=== PATIENT | female | born 1990 | race Caucasian/White ===

== ENCOUNTER 2024-04-06 06:14 | Emergency (ER) | payer BC, MEDICAID, SELFPAY ==
[2024-04-06] VITALS (11 sets, daily range): BP systolic 109–131; BP diastolic 75–96; PULSE 48–71; RESP 9–17; TEMP 36.6; O2SAT 94–100
--- NOTE | ~2024-04-06 | CT_ITS ---
EXAMINATION: CT abdomen pelvis w con DATE: 04/06/2024 08:22 INDICATION: Abdominal pain TECHNIQUE: Computed tomography (CT) of the abdomen and pelvis was performed with 100 mL Omnipaque-350 intravenous contrast. Automated exposure control and iterative reconstruction technique were employe d. The dose-length product was 1029.96 mGy-cm. COMPARISON: None FINDINGS: Lung bases are clear. Heart size is normal. No pericardial or pleural effusion. Focal hepatic steatos is at the ligamentum teres. There is diffuse edematous wall thickening of the gallbladder without vinnie reciable pericholecystic inflammatory stranding but nonetheless concerning for acute cholecystitis. N o intra or extra hepatic biliary ductal dilation. Spleen, pancreas, bilateral adrenal glands and kidn eys are normal. Bowels including the appendix are normal. Bladder is normal. The uterus is not identi fied and has likely been surgically resected. Bilateral adnexa are unremarkable. No free intraperiton eal gas or fluid. No pathologically enlarged abdominal or pelvic lymphadenopathy. No free intraperito luis gas or fluid. No pathologically enlarged abdominal or pelvic lymphadenopathy. Minimal scattered degenerative skeletal changes. IMPRESSION: 1. Edematous gallbladder wall thickening of the mildly dilated gallbladder suspicious for acute kim cystitis. Correlate for Encarnacion sign and if clinically indicated could consider further evaluation wit h gallbladder ultrasound and/or HIDA scan. Reviewed, dictated and finalized at location A. IMPRESSION: 1. Edematous gallbladder wall thickening of the mildly dilated gallbladder susp icious for acute cholecystitis. Correlate for Encarnacion sign and if clinically ind icated could consider further evaluation with gallbladder ultrasound and/or HID A scan.
--- NOTE | ~2024-04-06 | US_ITS ---
EXAMINATION: US abdomen limited DATE: 04/06/2024 09:28 INDICATION: Epigastric and right upper quadrant abdominal pain TECHNIQUE: Multiple grayscale and Doppler ultrasound images of the abdomen were obtained. COMPARISON: None FINDINGS: The pancreatic head and body are normal in appearance. The pancreatic tail is not visualized. Liver has normal echogenicity and contour, with a smooth surface. No liver lesion identified. No intrahepat ic biliary duct dilation suspected. Portal venous flow was seen in the hepatopetal, normal direction and has normal Doppler waveform. The visualized proximal to mid abdominal aorta and inferior vena cav a are normal. Multiple mobile shadowing gallstones are seen within the gallbladder. Borderline gallbl adder wall thickening. There is no sonographic Encarnacion's sign however patient was reportedly on analge sics which could reduce sensitivity. Normal common bile duct measuring 4 - 5 in maximal diameter. IMPRESSION: 1. Cholelithiasis with borderline wall thickening which appears more prominent on the prior CT suspic ious for acute cholecystitis. Sonographic Encarnacion sign was negative however patient was reportedly on analgesics which could reduce sensitivity. If this remains clinically equivocal could consider HIDA s can for further evaluation. Reviewed, dictated and finalized at location A. IMPRESSION: 1. Cholelithiasis with borderline wall thickening which appears more prominent on the prior CT suspicious for acute cholecystitis. Sonographic Encarnacion sign was negative however patient was reportedly on analgesics which could reduce sensi tivity. If this remains clinically equivocal could consider HIDA scan for furth er evaluation.
[2024-04-06] MEDS: ONDANSETRON INJ 4 MG/2 ML VIAL IV PUSH (06:36)
[2024-04-06 06:44] LABS: Basophils Percent Auto 0.3 % (0.2-1.2); Eosinophils Absolute Auto 0.1 K/mm3 (0-0.3); Hematocrit 42.3 % (37.0-47.0); Hemoglobin 13.8 g/dL (12.0-15.0); Immature Granulocyte Absolute 0.03 K/mm3 (0.00-0.031); Immature Granulocyte Percent A 0.3 % (0-0.5); Lymphocytes Absolute Auto 2.52 K/mm3 (0.9-3.2); Lymphocytes Percent Auto 28.3 % (18.3-44.2); Mean Corpuscular HGB Conc 32.6 g/dl (32-36); Mean Corpuscular Volume 85.8 fl (80-100); Mean Platelet Volume 11.1 fl (7.4-10.4); Monocytes Absolute Auto 0.5 K/mm3 (0.1-0.6); Monocytes Percent Auto 5.5 % (2.6-8.5); Neutrophils Absolute Auto 5.7 K/mm3 (1.3-6.7); Neutrophils Percent Auto 64.6 % (45.5-73.1); Platelet Count Result 253 k/mm3 (150-375); Red Blood Count 4.93 M/mm3 (4.2-5.4); Red Cell Distribution Width 13.8 % (11.5-14.5); White Blood Count 8.9 K/mm3 (4.5-10.0)
[2024-04-06 06:55] LABS: Alanine Aminotransferase 19 U/L (6-35); Albumin Level 4.5 g/dL (3.5-5.1); Alkaline Phosphatase 86 U/L (38-126); Anion Gap 9 mmol/L (4-12); Aspartate Amino Transferase 25 U/L (14-36); Bilirubin,Total 0.4 mg/dL (0.2-1.3); Blood Urea Nitrogen 10 mg/dL (7-17); Calcium 9.1 mg/dL (8.4-10.2); Carbon Dioxide 26 mmol/L (22-30); Chloride 108 mmol/L (98-107); Estimated CRCL calculation 97 ml/min; Estimated Glomerular Filt Rate > 60; Glucose 112 mg/dL (65-110); Lipase 88 U/L (23-300); Potassium 3.8 mmol/L (3.4-5.0); Sodium 143 mmol/L (137-145)
[2024-04-06] MEDS: SODIUM CHLORIDE 0.9% IV 1,000 ML 999 ML IV CONT (07:04)
--- NOTE | 2024-04-06 07:10 | PC.NURSE ---
report given to cat rn at this time. pt resting in bed. call light within reach. pt to call out when able to provide urine sample.
--- NOTE | 2024-04-06 07:26 | ED.ABDPAIN ---
HPI - Abdominal Pain General Chief Complaint: Abdominal Pain Stated Complaint: abdominal pain Time Seen by Provider: 04/06/24 06:51 History of Present Illness HPI narrative: 33-year-old present to the emergency department for evaluation of acute onset of nausea vomiting and epigastric pain. Patient reports last night she had onset of epigastric pain at approximately with pre a and. Patient does report associated nausea vomiting denies diarrhea. Patient has no prior history of gallbladder disease. Patient does have a prior history of a hysterectomy in 2016 Related Data Allergies Allergy/AdvReac Type Severity Reaction Status Date / Time No Known Allergies Allergy Verified 04/06/24 06:36 Review of Systems Review of Systems: All systems reviewed & are unremarkable except as noted in HPI and below PMFSH Family History Family History (Updated 07/14/19 @ 15:37 by DOCTOR UNKNOWN) Father Depression Other Family history of malignant neoplasm Social History Social History Smoking status: Never smoker Alcohol intake: never Exam Narrative: APPEARANCE: Well appearing, no pain, no distress, well-nourished. HEAD: normocephalic, atraumatic. EYES: PERRLA/EOMI, conjunctivae clear. NOSE: Normal no drainage EARS:TMS clear with good light reflex. THROAT: Pharynx clear, no exudate. NECK: Supple. No adenopathy, no masses. RESPIRATORY: Airway patent, respirations nonlabored. Clear to auscultation bilaterally, no rales, rhonchi, wheezing. CARDIOVASCULAR: Regular rate and rhythm without murmurs rubs or gallops. ABDOMINAL: Epigastric tenderness to palpation MUSCULOSKELETAL: Moves all extremities. Strength/ROM intact, No edema, No calf tenderness. NEURO: Alert. Cranial nerves II through XII intact. Grossly intact SKIN: Warm, dry. Normal Color Course Vital Signs Vital signs: Vital Signs Temperature 97.9 F 04/06/24 06:31 Pulse Rate 63 04/06/24 06:31 Respiratory Rate 14 04/06/24 06:31 Blood Pressure 122/79 04/06/24 06:31 Pulse Oximetry 99 04/06/24 06:31 Oxygen Delivery Room Air 04/06/24 06:31 Temperature 97.9 F 04/06/24 06:31 Pulse Rate 48 L 04/06/24 10:17 Respiratory Rate 9 L 04/06/24 10:17 Blood Pressure 122/81 06/16/24 10:17 Pulse Oximetry 100 06/16/24 10:17 Oxygen Delivery Room Air 04/06/24 06:31 MDM - Abdominal Pain MDM Narrative Medical decision making narrative: 33-year-old female presenting ED for evaluation epigastric abdominal pain with associated nausea vomiting. Patient did feel improved with IV fluids, IV Zofran IV Dilaudid. Patient is afebrile with no leukocytosis and a stable hemoglobin, no acute electrolyte abnormalities. Lipase is normal no elevation and T bili AST ALT or alk-phos. Patient does have significant tenderness to palpation she is being treated with a GI cocktail as well. CT scan is pending at this time. CT scan was concerning for gallbladder wall thickening. Patient has epigastric tenderness to no right upper quadrant tenderness to palpation. Upper quadrant ultrasound was ordered and did show cholelithiasis but no evidence of acute cholecystitis. Differential Diagnosis Differential diagnosis: Likely abdominal pain, acute appendicitis, constipation, pancreatitis and small bowel obstruction Lab Data Attestation: I reviewed the patient's lab results. 04/06/24 06:39 04/06/24 06:38 Labs: Lab Results 04/06/24 04/06/24 04/06/24 Range/Units 06:38 06:39 07:33 WBC 8.9 (4.5-10.0) K/mm3 RBC 4.93 (4.2-5.4) M/mm3 Hgb 13.8 (12.0-15.0) g/dL Hct 42.3 (37.0-47.0) % MCV 85.8 (80-100) fl MCH 28.0 (26-34) pg MCHC 32.6 (32-36) g/dl RDW 13.8 (11.5-14.5) % Plt Count 253 (150-375) k/mm3 MPV 11.1 H (7.4-10.4) fl Immature Gran % (Auto) 0.3 (0-0.5) % Neut % (Auto) 64.6 (45.5-73.1) % Lymph % (Auto) 28.3 (18.3-44.2) % [place] % (Auto) 5.5 (2.6-8.5) % Eo
[2024-04-06 07:39] LABS: Appearance Urine Clear (Clear); Bilirubin Urine Negative (Negative); Blood Urine Negative (Negative); Color Urine Yellow (Yellow); Glucose Urine UA Negative (Negative); Ketones Urine Trace mg/dL (Negative); Leukocyte Esterase Ur Negative LEU/UL (Negative); Nitrate Urine Negative (Negative); Protein Urine Negative (Negative); Specific Grav Ur 1.028 (1.001-1.035); pH Urine 5.5 (5.0-9.0)
[2024-04-06] MEDS: HYDROmorphone HCL INJ (*CRX) 1 MG/ML SYR 0.5 MG IV PUSH (07:41)
[2024-04-06] MEDS: PANTOPRAZOLE SODIUM IV 40 MG VIAL IV PUSH (07:41)
[2024-04-06 07:45] LABS: Add Urine Microscopic? NO
== END 2024-04-06 10:25 | disposition home or self-care (01) ==
PROVIDERS: Emergency Medicine; Emergency Provider Emergency Medicine
DX: K81.0 Acute cholecystitis (principal)
CPT/HCPCS: 36415; 74177; 76705; 80053; 81003; 83690; 85025; 96361; 96374; 96375; 99284; C9113; J1170; J2405; J7030; Q9967

== ENCOUNTER 2024-05-06 01:17 | Day surgery (SDC) | payer BC, MEDICAID, SELFPAY ==
--- NOTE | 2024-05-05 08:50 | PC.NURSE ---
Report to the Outpatient Waiting Room, entrance under the green pavilion located off [facility], at time _0700 on date __05/06/24 . Planned Procedure Time: ___0900 . Time changes happen often and if your time is changed the preop area will call you the afternoon before. - You and your visitor will be asked to self-screen and do not enter if you have any COVID symptoms. - A mask is optional within the hospital at this time. Patients may have clear liquids (water, carbonated beverages, clear teas, apple juice) until 3 hours prior to surgery( 6:00am) with a maximum of 20 ounces. - No food from midnight until time of surgery - Infants may have breast milk until 4 hours before surgery, infant formula 6 hours prior to surgery. - Children will be allowed to drink immediately following surgery. If applicable, please bring a bottle or sippy cup to assist with drinking. Juice, water, soda, and popsicles are readily available. For infants on formula, please bring formula the day of surgery. Pacifiers are allowed. Take the following medications with a SIP of water the morning of surgery: NONE DO NOT STOP ANY OF YOUR OTHER PRESCRIPTION MEDICATIONS PRIOR TO SURGERY ?EXCEPT THE FOLLOWING Medications to discontinue per physician NONE Please no make-up, nail gibraltarian, hairspray, perfume, deodorant, or body powder the day of surgery. No jewelry (including any body piercings) or valuables the day of surgery, leave them at home. Please take a shower or bath the night before, or the morning of, surgery with an antibacterial soap. Wear comfortable, loose fitting clothing. Children are encouraged to wear pajamas. - Jewelry must be removed prior to entering the operating room. Rings and piercings that are not removed may be cut off. - The hospital will not accept responsibility for valuables. - Please leave all valuables, including medications, at home the day of surgery. If you are going home after surgery, a licensed lumber stacker driver must drive you home. - NO public transportation without another adult if you receive anesthesia. - We recommend that an adult stay with you for 24 hours following discharge. - We also recommend that you do not drive, make important decision, drink alcoholic beverages, or take any drugs that were not prescribed by your health care provider for at least 24 hours after your discharge time. Follow any additional instructions given to you from your surgeon. If you or anyone in your household have experienced Covid symptoms in the past week, please notify your surgeon or the nurse liaison at the phone number below for possible testing. Telephone instructions given to __PATIENT and asked if any additional questions and then verbalized understanding. Patient advised to call surgeon office or pre surgery nurse liaison [phone] if any additional questions.
[2024-05-05 08:54] VITALS: BMI 34.8
[2024-05-06] VITALS (10 sets, daily range): BP systolic 110–149; BP diastolic 66–96; PULSE 58–91; RESP 10–16; TEMP 36.1–36.3; O2SAT 98–100
[2024-05-06] MEDS: LACTATED RINGERS 1,000 ML 30 ML IV CONT ×2 (08:14→10:16)
[2024-05-06] MEDS: INDOCYANINE GREEN 25 MG VIAL WITH DILUENT 3.75 MG IV PUSH (08:24)
[2024-05-06] MEDS: ACETAMINOPHEN 500 MG TABLET 1000 MG PO (08:26)
[2024-05-06] MEDS: KETOROLAC 15 MG/ML VIAL (*BKC) IV PUSH (08:26)
[2024-05-06 08:34] LABS: Amylase 78 U/L (30-110)
--- NOTE | 2024-05-06 08:45 | WPDHPUPDATE1 ---
History and Physical Update Update Date/Time: 05/06/24 08:45 History and Physical has been reviewed, including an updated exam of the patient. There are NO changes in the patient's condition. Risks, benefits, and alternatives have been discussed and questions answered. Patient agrees to proceed with procedure.
--- NOTE | 2024-05-06 08:46 | WPDANESEPPF ---
Anes - Initial Pre Proc Eval Procedure: Operation Date: 05/06/24 09:00 Proposed Procedures p Laparoscopic Cholecystectomy, Davinci Assisted - Adrien Gutierrez DO Date/Time: 05/06/24 08:46 Surgeon: Adrien Gutierrez DO Pre Op Diagnosis: Symptomatic Cholelithiasis Patient Data Age: 33 Gender: F Height: 1.63 m Weight: 90.3 kg Last Vital Signs Temp 97.0 F L 05/06/24 07:20 Pulse 74 05/06/24 07:20 Resp 16 05/06/24 07:20 BP 110/71 05/06/24 07:20 Pulse Ox 98 05/06/24 07:20 O2 Del Method Room Air 05/06/24 07:20 Allergies Allergy/AdvReac Type Severity Reaction Status Date / Time No Known Allergies Allergy Verified 05/06/24 08:15 Home Medications Medication Instructions Recorded Confirmed Type hydrocodone 5 mg-acetaminophen 325 1 tablet PO PRN PRN Pain 05/05/24 05/05/24 History mg tablet ondansetron 4 mg disintegrating 1 mg PO PRN PRN Nausea 05/05/24 05/05/24 History tablet Laboratory Tests 05/06/24 08:12 Amylase 78 U/L (30-110) Patient hx anesthesia problems: none Family hx anesthesia problems: none Results Review: All pre-operative results and documents have been reviewed as part of the pre-operative evaluation. [facility] Past Medical History Medical History Anxiety Family History Family History Father Depression Alcoholism Asthma Mother Breast cancer Depression Sibling Depression Thyroid disorder Grandparent Diabetes mellitus Heart disease Other Family history of malignant neoplasm Social History Social History Years smoked: 18 Smoking status: Current every day smoker Tobacco type: cigarettes Additional smoking assessment comments: Approximately 3 cigarettes daily Alcohol intake: never Substance use: current Substance use type: marijuana Other substance usage details: EVERY HS X 5 YRS Last use: 05/04/24 Do You Feel Safe in your Home?: Yes Lack of Transportation: No Lack of Food: Never True Current Housing: I Have Housing Concerned About Future Housing: No Difficulty Paying Gas/Electric Bills: No Difficulty Paying for Meds: No Currently Unemployed: No Education: High School Diploma/GED Difficulty w/ Childcare or Family Care: No Living arrangements: alone Spiritual care concerns: No Anes - Eval Final PreProcedure Day of Procedure 05/06/24 08:46 Patient weight: obese Heart: regular rate and rhythm Lungs: clear to auscultation Airway: Mallampati scale class II Neurological: alert and oriented Last oral intake: >/= 8 hours ASA classification: II Emergent: no Anesthetic plan: proceed Anesthesia type and monitoring: general ETT and standard monitoring Results Review: All pre-operative results and documents have been reviewed as part of the pre-operative evaluation. Pt smokes 3-4 cigs/day. Informed Consent: The patient's anesthetic plan and its attendant risks and benefits were discussed with the patient/family/POA. Questions were solicited and answers provided to the satisfaction of the patient/family/POA.
[2024-05-06] MEDS: ceFAZolin 2 GM/D5W 50 ML 2 GM/50 ML BAG IVPB (09:05)
[2024-05-06] MEDS: BUPIVACAINE/EPINEPHRINE 0.5% 50 ML VIAL 30 ML INFILTRATE (09:42)
--- NOTE | 2024-05-06 10:05 | W.PM.PROC2 ---
Procedure Note - Detailed Date of Procedure 05/06/24 Pre-op Diagnosis Symptomatic Cholelithiasis Post-op Diagnosis Same Procedure Performed 1. Laparoscopic cholecystectomy with cholangiography, da Doug assisted 2. Interpretation of cholangiography Surgeon Adrien Gutierrez DO Anesthesia General and Local (0.5% bupivacaine) Indications This is a 33-year-old woman who presented with intermittent right upper quadrant abdominal pain. She had been to the emergency department about 1 month ago with an acute attack and imaging showed evidence of cholelithiasis. She had normal white blood count and normal liver enzymes at that time it was able to be discharged home. She followed up in the office and continues to have some occasional symptoms if she is not staying on a low-fat diet. Discussions were made with the patient about treatment options and decision was made to proceed with robotic assisted laparoscopic cholecystectomy with cholangiography. Findings Patient was given 1.5 mL of indocyanine green intravenously preop. Near infrared fluorescence imaging was then used for visualization of the biliary anatomy intraoperatively. I was able to adequately visualize the cystic duct and ensure that this was far enough away from the common bile duct where I was dissecting. The gallbladder did not show any signs of acute inflammation and there were no pericholecystic adhesions. There were several gallstones within the gallbladder. The cystic duct appeared normal in size. No other intra-abdominal abnormalities were noted. The gallbladder was removed and sent to the lab for pathology. Description of Procedure Procedure as well as risks, benefits, and alternatives were discussed with the patient. Written consent was obtained and placed in chart prior to procedure. 1.5 mL of indocyanine green was given intravenously in preop. Patient was brought back to surgical suite. She was placed supine on operating table. Time-out was done to confirm patient and procedure. She was then intubated by the anesthesia department. Her abdomen was then prepped and draped in sterile fashion using chlorhexidine prep. 0.5% bupivacaine was infiltrated locally at the site of each port placement. An 8 mm incision was made in the left upper quadrant and a 5 mm Optiview trocar was then advanced through the abdominal layers under direct visualization. Once inside the abdominal cavity, carbon dioxide insufflation was used to create a pneumoperitoneum. The camera was inserted and the abdomen was inspected. No mediated abnormalities were noted. The patient was placed in 12? reverse Trendelenburg position and rotated 6? to the left. Two 8 mm incisions were made in the right lateral abdomen and 2 8 mm trocars were inserted under direct visualization. An 8 mm incision was made in the supraumbilical region and an 8 mm trocar was inserted under direct visualization. The 5 mm Optiview trocar was then removed and another 8 mm trocar was inserted in its place. The robotic arms were then brought up to the patient's bedside and secured to each port. The camera and instruments were inserted. I then moved over to the robotic consult to take control of the camera and instruments. The gallbladder was grasped at the fundus and retracted cephalad. The infundibulum of the gallbladder was then grasped and retracted laterally. Hook electrocautery was then used to carefully dissect around the neck of the gallbladder. The cystic duct was identified and a window was created around it using hook electrocautery. The cystic artery was also identified and a window was created behind it using hook electrocautery. Critical view of safety was identified visualizing the cystic duct running directly into the neck of the gallbladder and the cystic artery running directly into the wall the gallbladder. The camera view was switched to firefly mode and the indocyanine green within the gallbladder and cystic duct was jennifer
[2024-05-06] MEDS: fentaNYL CITRATE INJ (*CRX) 100 MCG/2 ML VIAL 25 MCG IV PUSH ×3 (10:34→11:01)
[2024-05-06] MEDS: oxyCODONE HCL (*CRX) 5 MG TAB IR PO (12:07)
== END 2024-05-06 13:07 | disposition home or self-care (01) ==
PROVIDERS: Visit Provider Surgery
PROC: 0FT44ZZ Resection of Gallbladder, Percutaneous Endoscopic Approach (ICD-10-PCS; CPT 47562; principal; 2024-05-06 09:00)
DX: K80.10 Calculus of gallbladder with chronic cholecystitis without obstruction (principal); F17.210 Nicotine dependence, cigarettes, uncomplicated; F12.90 Cannabis use, unspecified, uncomplicated; E66.9 Obesity, unspecified; Z68.34 Body mass index [BMI] 34.0-34.9, adult
CPT/HCPCS: 47563; 74300; S2900; 36415; 82150; 86850; 86900; 86901; 88304; A9270; J0690; J1100; J1170; J1885; J2250; J2405; J2704; J3010; J7120

== ENCOUNTER 2025-02-07 18:27 | Emergency (ER) | payer BC, SELFPAY ==
[2025-02-07 18:36] VITALS: BP 120/84; PULSE 93; RESP 16; TEMP 36.4; O2SAT 100
--- NOTE | 2025-02-07 18:54 | ED.GENADULT ---
HPI - General Adult General Chief complaint: Extremity Injury, Upper Stated complaint: R WRIST/UNDER ARM/NECK PAIN Time Seen by Provider: 02/07/25 18:40 Source: patient and RN notes reviewed Mode of arrival: ambulatory Limitations: no limitations History of Present Illness HPI narrative: Patient presents today complaining of intermittent right wrist pain for 6 weeks that increases with overuse, as well as a 2 week history of right neck pain. Denies any injury or trauma. Occasionally has some tingling to the right 5th finger that is not currently present. Currently rates her discomfort 2/10 and has tried no [id number] treatment prior to arrival. Patient also has some discomfort in her right axilla that has been intermittent over the past 1-1 and half years after a 3 mm biopsy. She reports intermittent swelling to the area as well. This has been evaluated by her PCP and was diagnosed as benign. Related Data Allergies Allergy/AdvReac Type Severity Reaction Status Date / Time No Known Allergies Allergy Verified 02/07/25 18:38 Review of Systems Review of Systems: CONSTITUTIONAL: Denies body aches, fever, chills, or sweats. EYES: Denies visual changes, redness, or discharge. ENT: Denies rhinorrhea, congestion, sore throat, or otalgia. CARDIOVASCULAR: Denies chest pain, palpitations, or edema. RESPIRATORY: Denies cough or dyspnea. GASTROINTESTINAL: Denies abdominal pain, nausea, vomiting, or diarrhea. GENITOURINARY: Denies dysuria or hematuria. SKIN: Denies rash, itching, or wounds. MUSCULOSKELETAL: + right wrist pain, right neck pain, right axilla pain NEUROLOGIC: Denies headache, tingling, or weakness.+ right 5th finger numbness PSYCH: Denies depression or anxiety. FOR[facility]LY [facility] Past Medical History Medical History Anxiety Family History Family History Father Depression Alcoholism Asthma Mother Breast cancer Depression Sibling Depression Thyroid disorder Grandparent Diabetes mellitus Heart disease Other Family history of malignant neoplasm Social History Social History Years smoked: 18 Smoking status: Current every day smoker Tobacco type: cigarettes Additional smoking assessment comments: Approximately 3 cigarettes daily Alcohol intake: never Substance use: current Substance use type: marijuana Other substance usage details: EVERY HS X 5 YRS Last use: 05/04/24 Do You Feel Safe in your Home?: Yes Lack of Transportation: No Lack of Food: Never True Current Housing: I Have Housing Concerned About Future Housing: No Difficulty Paying Gas/Electric Bills: No Difficulty Paying for Meds: No Currently Unemployed: No Education: High School Diploma/GED Difficulty w/ Childcare or Family Care: No Living arrangements: alone Spiritual care concerns: No Comments At time of signature, I have reviewed and agree with nursing past medical, surgical, social and family history unless otherwise noted. Please see nursing chart for further information. There is no relevant family history pertinent to the presenting complaint Exam Narrative: GENERAL: Well-appearing, well-nourished, and in no acute distress. HEAD: Normocephalic, atraumatic. EYES: EOMI. No redness or drainage. Conjunctivae normal. ENT: Mucous membranes pink and moist. Nares clear. No rhinorrhea. TMs normal bilaterally. Throat normal. Uvula midline. NECK: Normal AROM. Mild point tenderness to the left cervical paraspinal muscles. Mild tenderness to the right cervical paraspinal muscles extending to the mid trapezius and shoulder area. Some increased pain with range of motion of the neck. CHEST: No respiratory distress. MUSCULOSKELETAL: No bony tenderness of the spine. EXTREMITIES: Right wrist: Soft tissue tenderness to the dorsum of the wrist, but no bony tenderness. No edema, erythema, ecchymosis, or snuffbox tenderness. Patient has pain with ulnar and radial deviation but no pain with flexion, extension, pronation, or supination. Distal sensation intact. Capillary refill normal. Radial pulse normal. Right axilla: No abnormalities noted, no tenderness. SKIN: Warm, dry, no rash. Capillary refill normal. Normal skin turgor. NEURO: No focal deficits. Alert and oriented x3. Gait steady. PSYCH: Normal affect. No signs of depression or anxiety. Course Course Level of Care: Express Care Visit Vital Signs Vital signs: Vital Signs Temperature 97.6 F 02/07/25 18:36 Pulse Rate 93 02/07/25 18:36 Respiratory Rate 16 02/07/25 18:36 Blood Pressure 120/84 02/07/25 18:36 Pulse Oximetry 100 02/07/25 18:36 Temperature 97.6 F 02/07/25 18:36 Pulse Rate 93 02/07/25 18:36 Respiratory Rate 16 02/07/25 18:36 Blood Pressure 120/84 02/07/25 18:36 Pulse Oximetry 100 02/07/25 18:36 Reviewed Medical Decision Making MDM Narrative Medical decision making narrative: Patient will be treated for her trapezius strain with Flexeril. She will also be treated for presumed wrist tendinitis due to overuse with a Medrol Dosepak. Recommend starting NSAIDs as well. Patient also states she has a wrist splint at home. Recommend that she uses at least at night for immobilization. Recommend PCP follow-up for neck if no improvement. Recommend hand specialist follow-up for wrist if it does not improve. Patient agrees with plan. Differential Diagnosis Differential Diagnosis: Cervical strain, trapezius strain, cervical radiculopathy, acquired torticollis, wrist tendinitis, carpal tunnel, ligamentous injury Vital Signs Vital Signs: Vital Signs Temperature 97.6 F 02/07/25 18:36 Pulse Rate 93 02/07/25 18:36 Respiratory Rate 16 02/07/25 18:36 Blood Pressure 120/84 02/07/25 18:36 Pulse Oximetry 100 02/07/25 18:36 Temperature 97.6 F 02/07/25 18:36 Pulse Rate 93 02/07/25 18:36 Respiratory Rate 16 02/07/25 18:36 Blood Pressure 120/84 02/07/25 18:36 Pulse Oximetry 100 02/07/25 18:36 Critical Care Time Critical Care Time Critical Care Time: No Discharge Plan Discharge Clinical Impression: Right wrist tendinitis Strain of right trapezius muscle Qualifiers: Encounter type: initial encounter Qualified Code(s): S46.811A - Strain of other muscles, fascia and tendons at shoulder and upper arm level, right arm, initial encounter Patient Disposition: Home Condition: Stable Instructions: Cervical Strain (DC), Tendinitis (ED) Additional Instructions: Please take the Flexeril and Medrol Dosepak as directed. Do not drive within 8 hours of taking the Flexeril as it can make you drowsy. You may want to taking anti-inflammatories such as Aleve or ibuprofen as well. Use a heating pad to help relax your neck and shoulder muscles. You may also want to try wearing your home wrist brace at night to see if this will help with your discomfort. Follow-up with your PCP in 1 week if symptoms are not improving in your neck and shoulder. Follow-up with Orthopedics/Hand specialist if your wrist pain persists. Your blood pressure was elevated above 120/80 today at Urgent Care. This puts you above the threshold for follow up. Please schedule a followup visit with your personal physician as soon as possible, for further evaluation and treatment. Even blood pressure exceeding 120/80 may indicate pre-hypertension. Patient Language: Lebanese Prescriptions: New cyclobenzaprine 10 mg tablet 10 mg PO TID PRN (Reason: muscle spasm) Qty: 20 0RF methylprednisolone [Medrol (Wojciech)] 4 mg tablets,dose pack See Rx Instructions .ROUTE .COMPLEX Qty: 21 0RF Rx Instructions: orally per package directions Follow-up/Referrals: James Yu MD [Physician] - Avi,Vira Deng APRN [Primary Care Provider] - Time of Disposition: 18:52
== END 2025-02-07 18:57 | disposition home or self-care (01) ==
PROVIDERS: Emergency Provider Nurse Practitioner; PCP Nurse Practitioner Family
DX: M77.8 Other enthesopathies, not elsewhere classified (principal); S46.811A Strain of other muscles, fascia and tendons at shoulder and upper arm level, right arm, initial encounter; X58.XXXA Exposure to other specified factors, initial encounter; F17.210 Nicotine dependence, cigarettes, uncomplicated
CPT/HCPCS: 99213; G0463

== ENCOUNTER 2025-05-02 18:05 | Emergency (ER) | payer BC, SELFPAY ==
--- NOTE | 2025-05-02 18:12 | ED.GENADULT ---
HPI - General Adult General Chief complaint: Extremity Problem,Nontraumatic Stated complaint: SHOULDER/NECK PAIN Time Seen by Provider: 05/02/25 18:17 Source: patient, RN notes reviewed and old records reviewed Mode of arrival: ambulatory Limitations: no limitations History of Present Illness HPI narrative: 34-year-old female presents to the [facility] with complaints of lateral neck pain radiating down her arm into her fingers. Reports the pinky finger occasionally gets numb. Had a similar episode a couple months ago, was prescribed muscle relaxer and a steroid states that it did help for a couple of months. Has not seen primary care provider. Does have full range of motion. Strong webmethods consultant is noted. Denies any injury. 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 Related Data Allergies Allergy/AdvReac Type Severity Reaction Status Date / Time No Known Allergies Allergy Verified 05/02/25 18:15 Review of Systems Review of Systems: All systems reviewed & are unremarkable except as noted in HPI and below Constitutional: Constitutional: Reports no additional constitutional complaints Musculoskeletal: Musculoskeletal: Reports as per HPI Integumentary/Breasts: Skin/Breast: Reports system reviewed and no additional complaints, except as docu PMFSH Past Medical History Medical History Anxiety Family History Family History Father Depression Alcoholism Asthma Mother Breast cancer Depression Sibling Depression Thyroid disorder Grandparent Diabetes mellitus Heart disease Other Family history of malignant neoplasm Social History Social History Years smoked: 18 Smoking status: Current every day smoker Tobacco type: cigarettes Additional smoking assessment comments: Approximately 3 cigarettes daily Alcohol intake: never Substance use: current Substance use type: marijuana Other substance usage details: EVERY HS X 5 YRS Last use: 05/04/24 Do You Feel Safe in your Home?: Yes Lack of Transportation: No Lack of Food: Never True Current Housing: I Have Housing Concerned About Future Housing: No Difficulty Paying Gas/Electric Bills: No Difficulty Paying for Meds: No Currently Unemployed: No Education: High School Diploma/GED Difficulty w/ Childcare or Family Care: No Living arrangements: alone Spiritual care concerns: No Comments At the time of my signature, I reviewed and agree with the nursing past medical, surgical, social, and family history. There is no relevant family history pertinent to the patient complaint. Exam Const: General: cooperative, healthy appearing, comfortable, no acute distress, well developed, alert and well nourished Nutritional Appearance: well nourished and obese Orientation/consciousness: patient oriented x3 Limitations: no limitations HENMT: Head: normal to inspection Ears: hearing grossly normal bilaterally Face/Nose/Sinus: Normal external nose present Mouth: Yes Normal oral and palatal mucosa present, Yes lip normal, Yes tongue normal and Yes moist mucous membranes Eyes: General: appearance normal, both eyes and all related structures Alignment and Position: alignment normal Neck: Neck: normal visual inspection, full ROM, no lymphadenopathy and no meningeal signs Other: Tenderness extending from the right lateral neck into the trapezius muscle. Full range of motion of the neck. No midline tenderness. Full range of motion of the shoulder as well. Strong webmethods consultant. Full range of motion of the elbow, wrist. Chest: Chest palpation & inspection: normal inspection of the chest Resp: Effort & Inspection: normal respiratory effort and able to speak in complete sentences Cardio: Rate: regular rate Back/Spine/Pelvis: Back: no CVA tenderness Cervical Spine: cervical muscular tenderness (Right lateral) Thoracic/Lumbar Spine: thoracic and lumbar spine normal to inspection Skin: General skin exam: normal color and no rashes or lesions noted Neuro: General: patient oriented x3, gait normal, moves all extremities and no meningeal signs Cognition (Neuro): normal cognition Speech: normal speech Gait exam (Neuro): Normal gait present Extrem: General: normal to inspection, full ROM, capillary refill normal and normal gait Right upper extremity: shoulder/upper arm normal to inspection and tenderness (Trapezius) of the scapula; no swelling, elbow/forearm normal to inspection and normal ROM; no tenderness, wrist normal to inspection and normal ROM and Extremity exam: right hand normal to inspection, normal capillary refill and neuromotor exam normal wrist extension normal, thumb opposition normal, thumb IP flexion normal, thumb ADduction normal and fingers 2-5 ABduction normal Psych: Appearance: grossly normal and well kempt Mental Status: mental status grossly normal Speech and movement: Normal speech and movement present and Clear speech present Affect: normal affect Attitude: cooperative Course Course Level of Care: Express Care Visit Vital Signs Vital signs: Vital Signs Temperature 98 F 05/02/25 18:13 Pulse Rate 86 07/12/25 18:13 Respiratory Rate 16 05/02/25 18:13 Blood Pressure 110/86 05/02/25 18:13 Pulse Oximetry 100 05/02/25 18:13 Temperature 98 F 05/02/25 18:13 Pulse Rate 86 05/02/25 18:13 Respiratory Rate 16 05/02/25 18:13 Blood Pressure 110/86 05/02/25 18:13 Pulse Oximetry 100 05/02/25 18:13 Reviewed Medical Decision Making MDM Narrative Medical decision making narrative: Patient sitting comfortably in exam room. Nontoxic, vitals stable. Patient in no acute distress Patient presents with right lateral neck, shoulder discomfort. Exam most consistent with cervical radiculopathy, concern for pinched nerve, discussed the importance of following up with primary care provider for further evaluation, testing and treatment. Will prescribe muscle relaxer, anti-inflammatory and steroid. Discharge instructions reviewed with patient, as well as provided in writing per nursing staff. The instructions also include specific and strict return/GO TO THE ER as well as f/u information. All questions have been answered, and the patient deny any further questions with discharge and discharge plan. Some parts of this dictation were generated by voice recognition software and may contain typographical and/or grammatical inaccuracies. Differential Diagnosis Differential Diagnosis: Cervical radiculopathy, tendinitis, muscle strain, sprain Medical Records Medical records reviewed: Yes I reviewed the external patient's medical records. Vital Signs Vital Signs: Vital Signs Temperature 98 F 05/02/25 18:13 Pulse Rate 86 05/02/25 18:13 Respiratory Rate 16 05/02/25 18:13 Blood Pressure 110/86 05/02/25 18:13 Pulse Oximetry 100 05/02/25 18:13 Temperature 98 F 05/02/25 18:13 Pulse Rate 86 05/02/25 18:13 Respiratory Rate 16 05/02/25 18:13 Blood Pressure 110/86 05/02/25 18:13 Pulse Oximetry 100 05/02/25 18:13 Reviewed Lab Data Lab results reviewed: Yes I reviewed the patient's lab results. Labs: Reviewed Critical Care Time Critical Care Time Critical Care Time: No Discharge Plan Discharge Clinical Impression: Cervical radiculopathy, Strain of right trapezius muscle Patient Disposition: Home Condition: Stable Instructions: Antibiotic Form, Cervical Radiculopathy (ED) Additional Instructions: Take ibuprofen as directed to decrease inflammation and to help pain. Take Flexeril (muscle relaxer) as directed. Do not drink, drive, operate machinery, or do anything dangerous while taking this medication Exercise:Combine aerobic exercise, like walking or swimming, with specific exercises to keep the muscles in your back and abdomen strong and flexible. Proper Lifting:Be sure to lift heavy items with your legs, not your back. Do not bend over to pick something up. Keep your back straight and bend at your knees. Weight:Maintain a healthy weight. Being overweight puts added stress on your lower back. Avoid Smoking:Both the smoke and the nicotine cause your spine to age faster than normal. Proper Posture:Good posture is important for avoiding future problems. A therapist can teach you how to safely stand, sit, and lift. Use warm moist heat to help with pain. Using topical such as Biofreeze, Troy-Hightower or Aspercreme can also help Follow up with Primary provider in 2-3 days, This may become a chronic condition and they will be the one to help manage your pain and order additional testing. Go to the nearest ER if you develop problems with bladder/bowel function, weakness or loss of feeling in one or both of your legs. Patient Language: Montserratian Prescriptions: New methylprednisolone [Medrol (Wojciech)] 4 mg tablets,dose pack See Rx Instructions PO .COMPLEX Qty: 21 0RF Rx Instructions: orally per package directions cyclobenzaprine 10 mg tablet 10 mg PO TID PRN (Reason: muscle spasm) Qty: 15 0RF No Action cyclobenzaprine 10 mg tablet 10 mg PO TID PRN (Reason: muscle spasm) Qty: 20 0RF methylprednisolone [Medrol (Wojciech)] 4 mg tablets,dose pack See Rx Instructions .ROUTE .COMPLEX Qty: 21 0RF Rx Instructions: orally per package directions Follow-up/Referrals: Alvaro Lin MD [Physician] - 2 Weeks (express care follow up ) PHYSICIAN,PORTABLE FEED MILL OPERATOR [Primary Care Provider] - 2 Weeks Stand Alone Forms: Work/School Release IP Time of Disposition: 18:29
[2025-05-02 18:13] VITALS: BP 110/86; PULSE 86; RESP 16; TEMP 36.6; O2SAT 100
== END 2025-05-02 18:38 | disposition home or self-care (01) ==
PROVIDERS: Emergency Provider Nurse Practitioner
DX: M54.12 Radiculopathy, cervical region (principal); S46.811A Strain of other muscles, fascia and tendons at shoulder and upper arm level, right arm, initial encounter; X58.XXXA Exposure to other specified factors, initial encounter; F17.210 Nicotine dependence, cigarettes, uncomplicated
CPT/HCPCS: 99213; G0463